=== PATIENT | male | born 1995 | race Two or more races ===

== ENCOUNTER 2018-12-07 02:41 | Emergency (ER) | payer OTHER ==
[~2018-12-07] VITALS: Ht 162.6 cm; Wt 63.5 kg
[2018-12-07 03:03] VITALS: BP 141/81
--- NOTE | 2018-12-07 03:17 | NUR ---
RECENT RHINOPLASTY. WOKE UP GASPING FOR AIR. FEELS LIKE SOMETHING IS IN THROAT. VSS AT THIS TIME. AOX4. AMBULATORY. -SOB NOTED.
== END 2018-12-07 04:31 | disposition home or self-care (01) ==
LOC: ER 02:44
DX: G89.18 Other acute postprocedural pain (principal); Z98.890 Other specified postprocedural states

== ENCOUNTER 2018-12-09 21:57 | Emergency (ER) | payer OTHER ==
[~2018-12-09] VITALS: Ht 162.6 cm; Wt 63.5 kg
--- NOTE | 2018-12-09 22:05 | NUR ---
CAME IN FOR INTERMITTENT CHEST TIGHTNESS SINCE AM, +SOB, "IT FEELS DIFFERENT THAN ANXIETY". TO ER BED 7, HOOKED TO MONITOR, CHANGED TO HOSPITAL GOWN, PROVIDED W WARM BLANKET, AWAITING MD KEYS.
--- NOTE | 2018-12-09 22:15 | NUR ---
DR SANTOS AT BEDSIDE
[2018-12-09 22:31] LABS: BASOPHILS # (AUTO) 0.1 /CMM (0.0-0.2); BASOPHILS % (AUTO) 0.8 % (0.0-2.0); EOSINOPHILS % (AUTO) 8.4 % (0.0-6.0); HEMATOCRIT 41 % (39-51); HEMOGLOBIN 14.4 g/dL (13.5-17.5); LYMPHOCYTES # (AUTO) 2.5 /CMM (0.8-4.8); LYMPHOCYTES % (AUTO) 38.8 % (20.0-44.0); MEAN CORPUSCULAR HGB CONC 35 g/dl (31.0-36.0); MEAN CORPUSCULAR VOLUME 90 fL (80-96); MONOCYTES # (AUTO) 0.6 /CMM (0.1-1.30); MONOCYTES % (AUTO) 8.7 % (2.0-12.0); NEUTROPHILS # (AUTO) 2.8 /CMM (1.8-8.9); NEUTROPHILS % (AUTO) 43.3 % (43.0-81.0); PLATELET COUNT (AUTO) 252 /CMM (150-450); RED BLOOD CELL COUNT(AUTO) 4.54 MIL/uL (4.5-6.0); WHITE BLOOD COUNT (AUTO) 6.5 K/uL (4.3-11.0)
[2018-12-09 22:46] LABS: CARBON DIOXIDE 29 mmol/L (21-32); CHLORIDE 104 mmol/L (98-107); CREATININE 0.8 mg/dL (0.6-1.3); GLUCOSE 119 mg/dL (74-106); POTASSIUM 3.5 mmol/L (3.5-5.1); SODIUM SERUM 140 mmol/L (136-145); UREA NITROGEN, BLOOD 16 mg/dL (7-18)
--- NOTE | 2018-12-10 00:03 | NUR ---
Patient discharged to home in stable condition. Written and verbal after care instructions given. Patient verbalizes understanding of instruction.IV removed. Catheter intact and site benign. Pressure and 4x4 applied to site. No bleeding noted.Pt ambulatory with a steady gait
[2018-12-10 00:06] VITALS: BP 129/74
== END 2018-12-10 00:06 | disposition home or self-care (01) ==
LOC: ER 21:57
DX: R07.89 Other chest pain (principal); Z98.890 Other specified postprocedural states
CPT/HCPCS: 36415; 71045-TC; 80048-TC; 84484-TC; 85025-TC; 85378-TC

== ENCOUNTER 2020-09-03 02:10 | Emergency (ER) | payer OTHER ==
[~2020-09-03] VITALS: Ht 162.6 cm; Wt 58.5 kg
--- NOTE | 2020-09-03 02:15 | NUR ---
PATIENT CAME IN WITH C/O SORE THROAT, SOB WITH CLEAR LUNG SOUNDS SINCE THIS MORNING. PATINET BREATHIG IS EVEN AND UNLABORED, NO SIGNS OF SOB NOTED AT THIS TIME. SHALININET A/OX 4, STABLE ON ROOM AIR. VSS, WILL CONTINUE TO MONITOR.
[2020-09-03] MEDS ORDERED: PANT40TA2 PO (02:27)
[2020-09-03] MEDS ORDERED: MAG HYDROX/AL HYDROX/SIMETH 30 ML UDC ONE (02:30)
[2020-09-03] MEDS ORDERED: LIDOCAINE VISCOUS 2% UD 15 ML UDC MM ONE (02:30)
[2020-09-03] MEDS ORDERED: LIDOCAINE VISCOUS 2% UD 15 ML UDC ONE (02:30)
[2020-09-03] MEDS ORDERED: MAG HYDROX/AL HYDROX/SIMETH 30 ML UDC PO ONE (02:30)
--- NOTE | 2020-09-03 03:01 | NUR ---
Patient discharged to home in stable condition. Rx and Written and verbal after care instructions given. Patient verbalizes understanding of instruction.
[2020-09-03 03:02] VITALS: BP 118/64
== END 2020-09-03 03:02 | disposition home or self-care (01) ==
LOC: ER 02:11
DX: K21.9 Gastro-esophageal reflux disease without esophagitis (principal); F10.10 Alcohol abuse, uncomplicated; Y90.9 Presence of alcohol in blood, level not specified; Z98.890 Other specified postprocedural states; Z79.899 Other long term (current) drug therapy

== ENCOUNTER 2020-09-06 07:56 | Emergency (ER) | payer SELFPAY ==
[~2020-09-06] VITALS: Ht 162.6 cm; Wt 59.0 kg
[~2020-09-06 07:56] MED LIST: PANT40TA2 PO
[2020-09-06 08:00] VITALS: BP 111/77
--- NOTE | 2020-09-06 08:05 | NUR ---
AT BEDSIDE FOR EVAL.
--- NOTE | 2020-09-06 08:20 | NUR ---
BARK SPUDDER AT BEDSIDE FOR XRAY.
[2020-09-06] MEDS ORDERED: BENZ-13 PO (09:22)
[2020-09-06] MEDS ORDERED: IBUP-1955 PO (09:22)
--- NOTE | 2020-09-06 09:35 | NUR ---
Patient discharged to home in stable condition. Written and verbal after care instructions given. Patient verbalizes understanding of instruction.
== END 2020-09-06 09:38 | disposition home or self-care (01) ==
LOC: ER 07:56
DX: J06.9 Acute upper respiratory infection, unspecified (principal); R05 Cough; Z20.822 Contact with and (suspected) exposure to COVID-19
CPT/HCPCS: 71045; 99284; C9803; U0003